=== PATIENT | male | born 1985 | race Hispanic/Latino ===

== ENCOUNTER 2024-03-28 15:02 | Emergency (ER) | payer SELFPAY ==
[~2024-03-28 15:02] MED LIST: Iopamidol 300 61% 100 ML VIAL FS ONE
[2024-03-28] MEDS ORDERED: Ondansetron PF 4 MG/2 ML Vial ONE (15:14)
[2024-03-28] MEDS ORDERED: Morphine 4 MG/ML VIAL ONE (15:14)
[2024-03-28] MEDS ORDERED: cefTRIAXone (ROCEPHIN) 2 GM VIAL ONE (15:14)
[2024-03-28] MEDS ORDERED: Boostrix 0.5 ML (Tdap) VIAL (>/=7 yrs of age) ONE (15:19)
[2024-03-28 15:31] LABS: #Basophils 0.03 10x3/uL (0.0-0.2); #Eosinophils 0.32 10x3/uL (0.0-0.5); #Monocytes 0.88 10x3/uL (0.0-1.1); #Neutrophils 7.07 10x3/uL (1.5-8.4); %Basophils 0.2 % (0.0-2.0); %Eosinophils 2.5 % (0.0-6.0); %Lymphocytes 34.9 % (18.0-47.0); %Monocytes 6.8 % (0.0-10.0); %Neutrophils 54.9 % (40.0-75.0); Hematocrit 36.6 % (38.8-50.0); Hemoglobin 13.1 g/dL (13.5-17.5); Mean Corpuscular HGB CONC 35.8 g/dL (32.0-36.0); Mean Corpuscular Hemoglobin 32.6 pg (27.0-33.0); Mean Platelet Volume 10.2 fL (7.4-10.4); Platelet Count 427 10x3/uL (150-450); RBC Distribution Width 12.3 % (11.5-14.5); Red Blood Cell (RBC) Count 4.02 10x6/uL (4.32-5.72); White Blood Cell (WBC) Count 12.89 10x3/uL (3.5-10.5)
[2024-03-28 15:45] LABS: PTT 25.9 sec (22.0-33.0)
[2024-03-28 15:49] LABS: ALT (SGPT) 26 U/L (Less than 45); AST (SGOT) 42 U/L (11-34); Albumin 3.8 g/dL (3.1-4.5); Alcohol Less than 10.0 mg/dL (Less than 10); Alkaline Phosphatase 88 U/L (40-110); Anion Gap 16 mmol/L (10-20); BUN (Urea Nitrogen) 11 mg/dL (8.9-20.6); Bilirubin, Total 0.7 mg/dL (0.3-1.2); Calc. Creatinine Clearance 0 mL/min (70-130); Carbon Dioxide 20 mmol/L (22-29); Chloride 102 mmol/L (98-107); Estimated GFR 90; Globulin 4.8 g/dL (2.4-3.5); Glucose 169 mg/dL (70-105); Lipase 38 U/L (8-78); Potassium 3.2 mmol/L (3.5-5.1); Protein, Total 8.6 g/dL (6.0-8.3); Sodium 135 mmol/L (136-145)
[2024-03-28 15:57] LABS: Troponin I Less than 0.010 ng/mL (< 0.028)
[2024-03-28] MEDS ORDERED: KETAMINE 100 MG/ML (5ML VIAL) ONE (16:45)
== END 2024-03-28 17:37 | disposition short-term general hospital (02) ==
LOC: CSHERS 15:02
DX: S82.302A Unspecified fracture of lower end of left tibia, initial encounter for closed fracture (principal); S82.892A Other fracture of left lower leg, initial encounter for closed fracture; S82.832A Other fracture of upper and lower end of left fibula, initial encounter for closed fracture; Z23 Encounter for immunization; W11.XXXA Fall on and from ladder, initial encounter
CPT/HCPCS: 27825; 70450; 71260; 72125; 74177; 80307; 83605; 83690; 84484; 85025; 85610; 85730; 86850; 86900; 86901; 90471; 90715; 93005; 94760; 96372; 96374; 96375; J0696; J2270; J2405; Q9967